=== PATIENT | male | born 1995 | race Caucasian/White ===

== ENCOUNTER 2017-01-04 20:02 | Emergency (ER) | payer OTHER ==
[~2017-01-04] VITALS: Ht 175.3 cm; Wt 75.7 kg
[~2017-01-04 20:02] MED LIST: CLARITIN10 M3 PO
[2017-01-04 22:32] VITALS: BP 147/86
== END 2017-01-04 22:36 | disposition home or self-care (01) ==
LOC: EME 20:02
DX: H53.8 Other visual disturbances (principal); Z87.891 Personal history of nicotine dependence
CPT/HCPCS: 99281; 99283